=== PATIENT | female | born 1990 | race Caucasian/White ===

== ENCOUNTER 2024-08-18 13:06 | Emergency (ER) | payer BC, OTHER ==
[2024-08-18 13:37] LABS: #Basophils Less than 0.03 10x3/uL (0.0-0.2); %Basophils 0.3 % (0.0-1.0); %Eosinophils 4.9 % (0.0-10.0); %Lymphocytes 27.6 % (21.0-51.0); %Monocytes 4.7 % (0.0-10.0); %Neutrophils 62.4 % (42.0-75.0); Hematocrit 37.7 % (36.0-47.0); Hemoglobin 12.6 g/dL (12.0-16.0); Mean Corpuscular HGB CONC 33.4 g/dL (32.0-36.0); Mean Corpuscular Hemoglobin 29.3 pg (27.0-31.0); Mean Corpuscular Volume 87.7 fL (78.0-98.0); Mean Platelet Volume 8.9 fL (7.4-10.4); Platelet Count 369 10x3/uL (130-400); RBC Distribution Width 13.1 % (11.5-14.5)
[2024-08-18 13:53] LABS: BHCG - Serum Negative (NEGATIVE); Pregs Control Background? CLEAR/WHITE (CLR/WHITE); Pregs Control Bar Appear? YES (CONTROL BAR)
[2024-08-18 13:55] LABS: ALT (SGPT) 19 U/L (Less than 34); AST (SGOT) 25 U/L (11-34); Albumin 4.3 g/dL (3.1-4.5); Alkaline Phosphatase 47 U/L (40-110); Anion Gap 11 mmol/L (10-20); BUN (Urea Nitrogen) 18 mg/dL (7.0-18.7); Bilirubin, Total 0.6 mg/dL (0.3-1.2); Calc. Creatinine Clearance 0 mL/min (70-130); Carbon Dioxide 22 mmol/L (22-29); Chloride 110 mmol/L (98-107); Estimated GFR 102; Glucose 92 mg/dL (70-105); Magnesium 2.1 mg/dL (1.6-2.6); Potassium 3.6 mmol/L (3.5-5.1); Protein, Total 7.3 g/dL (6.0-8.3); Sodium 139 mmol/L (136-145)
[2024-08-18 14:01] LABS: Troponin I Less than 0.010 ng/mL (< 0.028)
[2024-08-18 16:06] LABS: Bacteria/HPF 3+ HPF (None Seen); Bilirubin Negative (Negative); Blood, Urine Negative (Negative); CAUTI Indications for Culture Dysuria,urgency,freq; Clarity Turbid (Clear); Glucose, Urine (Dipstick) Normal (Negative); Ketone, Urine Negative (Negative); Leukocyte 500 Leu/uL (Negative); Nitrite 2+ (Negative); Protein, Urine (Dipstick) 20 mg/dL (Neg-Trace); RBC/HPF None Seen HPF (0-3); Specific Gravity, Urine 1.025 (1.002-1.036); Squamous Epithelial 21-50 HPF (0-3); Urobilinogen Normal mg/dL (Less than 2); WBC/HPF Greater than 50 HPF (0-3); pH, Urine 6.5 (5.0-9.0)
[2024-08-18 16:07] LABS: Urine Culture Reflex Yes Yes
== END 2024-08-18 15:08 | disposition left against medical advice (07) ==
LOC: ERS 13:06
DX: I95.1 Orthostatic hypotension (principal); F90.9 Attention-deficit hyperactivity disorder, unspecified type; F17.210 Nicotine dependence, cigarettes, uncomplicated; F17.290 Nicotine dependence, other tobacco product, uncomplicated; Z79.899 Other long term (current) drug therapy
CPT/HCPCS: 80053; 81001; 83735; 84443; 84484; 84703; 85025; 87077; 87086; 87186; 93005; 96360